=== PATIENT | female | born 1940 | race Caucasian/White ===

== ENCOUNTER → 2017-02-01 13:36 | Outpatient (CLI) | payer MEDICARE, OTHER ==
[2017-02-01 14:15] LABS: CREATININE - SERUM 0.8 mg/dL (0.6-1.3)
== END | disposition home or self-care (01) ==
LOC: D.LAB 13:36 → D.MRI 14:30
PROVIDERS: Psychiatry & Neurology Neurology
DX: G35 Multiple sclerosis (principal)

== ENCOUNTER 2017-02-07 08:20 | Outpatient (CLI) | payer MEDICARE, OTHER ==
[~2017-02-07] VITALS: Ht 162.6 cm; Wt 72.7 kg
[2017-02-07] MEDS ORDERED: SYNTHROID25 MCG (10:29)
[2017-02-07 10:35] VITALS: BP 133/71; Ht 162.6 cm; Wt 72.7 kg
--- NOTE | 2017-02-07 10:38 | NUR ---
1022- 22 GAUGE IV STARTED IN LEFT ARM X 1 STICK. FLUSHED EASILY WITHOUT ANY DIFFICULTIES. SECURED WITH TEGADERM. 1023-SOLUMEDROL INFUSION STARTED VIA MED PUMP AT 86CC/HR WITHOUT ANY PROBLEMS. SITE LOOKS PATENT WITHOUT ANY EDEMA NOTED. 1040-PT CONTINUES TO DO WELL. CALL LIGHT IN REACH WILL CONTINUE TO MONITOR
--- NOTE | 2017-02-07 11:44 | NUR ---
1140-ROOM CHECK, PT DOING WELL, AND DENIES ANY NEEDS OR CONCERNS AT THIS TIME
--- NOTE | 2017-02-07 13:47 | NUR ---
1325-INFUSION COMPLETED PLANNED. IV SALINE LOCKED AND WRAPPED WITH COBAN. 1350-PT ESCORTED OUT VIA WHEELCHAIR IN STABLE CONDITION
== END 2017-02-07 13:50 | disposition home or self-care (01) ==
LOC: D.OPS 08:20
DX: G35 Multiple sclerosis (principal)

== ENCOUNTER 2017-02-08 08:10 | Outpatient (CLI) | payer MEDICARE, OTHER ==
[~2017-02-08 08:10] MED LIST: SYNTHROID25 MCG
== END 2017-02-08 12:05 | disposition home or self-care (01) ==
LOC: D.OPS 08:10
DX: G35 Multiple sclerosis (principal)

== ENCOUNTER 2017-02-09 06:27 | Outpatient (CLI) | payer MEDICARE, OTHER ==
[~2017-02-09] VITALS: Ht 162.6 cm; Wt 72.7 kg
[2017-02-09 12:03] VITALS: BP 128/72; Ht 162.6 cm; Wt 72.7 kg
--- NOTE | 2017-02-09 12:14 | NUR ---
0920-SALINE LOCK TO LEFT ARM PATENT AND POSITIVE FOR BLOOD RETURN. FLUSHED. 1030-RESP WITH EASE, IV INFUSING PER PUMP, SITE WITHOUT REDNESS OR SWELLING. 1103-IV CONTINUES TO INFUSE PER PUMP. RESP WITH EASE. GLASS OF H2O PROVIDED.
== END 2017-02-09 12:55 | disposition home or self-care (01) ==
LOC: D.OPS 06:27
DX: G35 Multiple sclerosis (principal)

== ENCOUNTER 2017-02-10 08:34 | Outpatient (CLI) | payer MEDICARE, OTHER ==
--- NOTE | 2017-02-10 09:00 | NUR ---
PATIENT RECEIVED TO FLOOR. SITTING UP IN CHAIR ALERT. NO SIGNS OF DISTRESS NOTED. CALL LIGHT IN REACH.
--- NOTE | 2017-02-10 09:01 | NUR ---
ORDERED IV SOLUMEDROL INFUSION INITIATED. IV TO LEFT FOREARM PATENT. FLUSHES EASY. NO REDNESS OR INFLAMMATION NOTED. DENIES NEEDS. CALL LIGHT IN REACH.
[2017-02-10 09:17] VITALS: BP 150/60; Ht 162.6 cm
--- NOTE | 2017-02-10 12:30 | NUR ---
INFUSION COMPLETE. IV SALINE LOCKED. D/C TEACHING PROVIDED. STATES UNDERSTANDING. TRANSFERRED DOWNSTAIRS VIA WHEELCHAIR WITH STAFF
[2017-02-11] MEDS ORDERED: SYNTHROID75 MCG PO (19:44)
== END 2017-02-10 12:30 | disposition home or self-care (01) ==
LOC: D.OPS 08:34 → D.MS 08:35 → D.OPS 12:30
DX: G35 Multiple sclerosis (principal)

== ENCOUNTER 2017-02-11 14:14 | Outpatient (CLI) | payer MEDICARE, OTHER ==
[~2017-02-11] VITALS: Ht 162.6 cm; Wt 72.7 kg
[2017-02-11 14:31] VITALS: Ht 162.6 cm; Wt 72.7 kg
--- NOTE | 2017-02-11 14:41 | NUR ---
PT REC'D TO ROOM. AAOX4. PIV TO L FOREARM FREE OF REDDNESS AND SWELLING. BED LOW, CALL LIGHT IN REACH, DENIES NEEDS. CPOC.
--- NOTE | 2017-02-11 18:50 | NUR ---
PT FOUND IN FLOOR. WAS VERY LETHARGIC AND PALE. ASSISTED BACK TO BED. NO VISIBLE SIGN OF INJURY. PT DENIES HURTING ANYTHING. STATES, "I ATE SOME FOOD THAT DIDN'T AGREE WITH ME. I'VE FELT NAUSESOUS SINCE I GOT HERE. I WAS ON MY WAY BACK FROM THE BATHROOM." DENIES HEART HX. CURRENT VS. 147/86, PULSE 132, O2 97% ON RA, RESPERATIONS LABORED AT 20. EKG OBTAINED BY RASHEED. SHOWING A-FIB WITH OCCASIONAL PVC'S. TELEMETRY PLACED ON. READING 142 UNCONTROLLED A-FIB WITH PVC'S. DR. BONILLA CALLED AND HE STATED, "I DO NOT ADMIT PATIENTS. CALL MED-MOLD FILLER AND DRAINER OR CARDIOLOGY." WILL CALL CARDIOLOGY.
[2017-02-11] MEDS ORDERED: SYNTHROID75 MCG PO (19:44)
== END 2017-02-11 19:55 | disposition other institution (70) ==
LOC: D.OPS 14:14 → D.MS 14:14 → D.OPS 19:55
DX: G35 Multiple sclerosis (principal)

== ENCOUNTER 2017-02-11 19:35 | Inpatient (IN) | payer MEDICARE, OTHER ==
[~2017-02-11] VITALS: Ht 162.6 cm; Wt 163.7 kg
--- NOTE | ~2017-02-11 | EC ---
PATIENT:LEONARDO CHAO DATE OF SERVICE: 02/11/17 SEX: F MEDICAL RECORD: [id number] DATE OF : 38 LOCATION:D. D.211 AGE OF PATIENT: 77 ADMISSION DATE: 02/11/17 REFERRING PHYSICIAN: INTERPRETING PHYSICIAN: JOSÉ MANUEL CASTANO MD ECHOCARDIOGRAM REPORT ECHO CHARGES 4 ECHO COMPLETE CLINICAL DIAGNOSIS: A-FIB ECHOCARDIOGRAPHIC MEASUREMENTS (adult normal given) AC root (d.<3.7cm) 2.9 LV Septum d (<1.2 cm> 1.4 Valve Excursion 1.1 LV Septum (systole) 1.8 Left Atria (s.<4.0cm> 2.2 LVPW d(<1.2cm) 1.2 RV (d.<2.3cm) 2.1 LVPW (sytole) 1.6 LV diastole(<5.6CM) 2.9 MV E-F(>70mm/sec) LV systole 1.5 LVOT Diameter 1.5 MV exc.(>10mm) Est.ejection fraction (50-75%) Pericardial Effusion N DOPPLER: LVIT A E 93.0 LA RVSP 30.0 LVOT 135 AOP1/2T Asc. Ao 122 RVOT 6.0 RA PA 86.0 AV Gradient Peak 6.0 AV Mean 3.0 AV Area 2.1 MV Gradient Peak 3.7 MV Mean 1.5 MV Area COMMENTS: Nut Sheller: Jennifer CHICASOE Atlassian Administrator:Kitty Barnett TAPE# PACS DATE OF SERVICE: 02/14/2017 FINDINGS: 1. Left ventricular chamber size is within normal limits. Left ventricular systolic function is normal. Overall ejection fraction estimated at 60%. 2. Left atrium, right atrium, and right ventricle chamber sizes are within normal limits. 3. Valvular structures have normal structure and motion. 4. Doppler interrogation reveals mild to moderate tricuspid regurgitation, no other valvular insufficiency or stenosis. Pulmonary systolic pressure is ECHOCARDIOGRAM REPORT [id number] LEONARDO CHAO estimated at 30 mmHg. 5. No evidence of pericardial effusion or left ventricular thrombus. TRANSINT:[id number] Voice Confirmation ID: [id number] DOCUMENT ID: [id number] JOSÉ MANUEL CASTANO MD CC: [id number] DICTATION DATE: 02/14/171748 SEMI CONDUCTOR ASSEMBLER: 02/15/17 0427 ADM IN [facility] [address] [place] [address]
[2017-02-11] MEDS ORDERED: SYNTHROID75 MCG PO (19:44)
--- NOTE | 2017-02-11 20:07 | NUR ---
FAMILY ON FLOOR WAITING FOR PT TO BE BROUGHT OVER FROM MED SURG. REVIEWED PLAN OF CARE THAT WILL BE IMPLEMENTED.
--- NOTE | 2017-02-11 20:15 | NUR ---
RECEIVED FULL REPORT FROM DEBO ON PT/CHANGE IN STATUS AND ALL ORDERS THAT HAVE BEEN IMPLEMENTED A THIS TIME.
--- NOTE | 2017-02-11 22:00 | NUR ---
DR BONILLA ON UNIT SEEING PATIENT. ESTABLISHED PLAN OF CARE. NO NEW ORDERS NOTED. CPOC.
[2017-02-11 22:11] VITALS: BP 172/88
[2017-02-12] VITALS (7 sets, daily range): BP systolic 103–179; BP diastolic 49–88; Ht 162.6 cm; Wt 163.7 kg
--- NOTE | 2017-02-12 01:44 | NUR ---
2100 ADMINSTERED NEWLY ORDERED PO BY MEDS. PT WAS GIVEN BETAPACE. PT/FAMILY TEACHING ON PURPOSE TO WHOLE FAMILY. 2200 IV CARDIZEM/DILTIAZEM DRIP NOW UP AND INFUSING AT 10ML/HR. CURRENTLY UCAF 120'S PER TELEMETRY. FAMILY X 1 AT BEDSIDE. RESTART IVF AT KVO RATE AND WILL MONITOR.
--- NOTE | 2017-02-12 05:19 | NUR ---
0330 CAF 60'S, REDUCED RATE OF DILTIAZEM TO 5ML/HR AND WILL CONTINUE TO MONITOR. 0515 PT RESTING. NO DISTRESS. ALERT/ORIENTED. SON AT BEDSIDE. HAS MAINTAINED CAF 60'S. CONTINUE TO MONITOR.
[2017-02-12 06:19] LABS: BASOPHILS 0 % (0-2); EOSINOPHILS 0 % (0-7); HEMATOCRIT 46.5 % (36.0-48.0); HEMOGLOBIN 15.4 g/dL (12-16); IMMATURE GRANULOCYTES 0.5 % (0-5); LYMPHOCYTES 8.9 % (15-50); MCH 31.8 pg (26.0-34.0); MCHC 33.1 g/dL (31.0-37.0); MCV 95.9 fL (80.0-100.0); MEAN PLATELET VOLUME 11.1 fL (7.4-10.4); MONOCYTES 4.1 % (2-11); NEUTROPHILS 86.5 % (40-80); PLATELET COUNT 335 10x3/uL (130-400); RBC 4.85 10x6/uL (4.00-5.40); RDW 13.1 % (11.5-14.5); WBC 7.6 10x3/uL (4.8-10.8)
[2017-02-12 07:08] LABS: ALBUMIN 3.5 g/dL (3.4-5.0); ANION GAP 12.5 mmol/L (8-16); CALCIUM 8.7 mg/dL (8.5-10.1); CARBON DIOXIDE 29.7 mmol/L (21.0-32.0); CREATININE - SERUM 0.9 mg/dL (0.6-1.3); POTASSIUM - SERUM 3.2 mmol/L (3.5-5.1); T4 THYROXINE 10.2 ug/dL (4.7-13.3); THYROID STIMULATING HORMONE 0.21 uIU/mL (0.36-3.74)
--- NOTE | 2017-02-12 12:23 | NUR ---
FSBS 169
--- NOTE | 2017-02-12 19:00 | NUR ---
INITIAL ROUNDS MADE. PT SITTING UP IN BED WITH FAMILY IN ROOM. DENIES NEEDS OR C/O AT THIS TIME. CALL LIGHT IN REACH. WILL CONT TO MONITOR.
--- NOTE | 2017-02-12 21:30 | NUR ---
FSBS 258, NO INSULIN COVERAGE ORDERED. PT HAS JUST FINISHED EATING A STRAWBERRY ICE CREAM SLUSH FROM [employer].
--- NOTE | 2017-02-12 23:08 | NUR ---
VALIDATION TECHNICIAN AT BEDSIDE FOR VS. NEEDS ADDRESSED AT THIS TIME. CALL LIGHT IN REACH. WILL CONT TO MONITOR.
[2017-02-13] VITALS: BP 152/92
--- NOTE | 2017-02-13 03:22 | NUR ---
RESTING WELL WITH EYES CLOSED, CALL LIGHT IN REACH. WILL CONT TO MONITOR.
[2017-02-13 04:00] VITALS: BP 143/83
--- NOTE | 2017-02-13 07:30 | NUR ---
RESTING QUIETLY AAOX4 RESP UNLABORED DENIES ANY NEEDS OR DISCOFORT
[2017-02-13 08:03] VITALS: BP 148/79
[2017-02-13 08:20] LABS: FOLATE (FOLIC ACID) - SERUM 12.1 ng/mL (>3.0)
--- NOTE | 2017-02-13 11:50 | NUR ---
FSBS 144
[2017-02-13 11:58] VITALS: BP 152/72
[2017-02-13 16:08] VITALS: BP 112/47
--- NOTE | 2017-02-13 19:00 | NUR ---
INITIAL ROUNDS MADE. PT SITTING UP IN BED WITH FAMILY IN ROOM. DENIES NEEDS OR C/O AT THIS TIME. WILL CONT TO MONITOR.
[2017-02-13 21:48] VITALS: BP 141/77
--- NOTE | 2017-02-13 23:30 | NUR ---
SHOWROOM CONSULTANT AT BEDSIDE FOR VS. NEEDS ADDRESSED AT THIS TIME. CALL LIGHT IN REACH. WILL CONT TO MONITOR.
[2017-02-14 01:50] VITALS: BP 155/81
[2017-02-14 05:52] VITALS: BP 152/82
[2017-02-14 06:53] LABS: BASOPHILS 0.1 % (0-2); EOSINOPHILS 0 % (0-7); HEMATOCRIT 44.5 % (36.0-48.0); HEMOGLOBIN 14.8 g/dL (12-16); IMMATURE GRANULOCYTES 0.7 % (0-5); LYMPHOCYTES 8.3 % (15-50); MCH 31.8 pg (26.0-34.0); MCHC 33.3 g/dL (31.0-37.0); MCV 95.7 fL (80.0-100.0); MEAN PLATELET VOLUME 10.6 fL (7.4-10.4); MONOCYTES 7.3 % (2-11); NEUTROPHILS 83.6 % (40-80); PLATELET COUNT 348 10x3/uL (130-400); RBC 4.65 10x6/uL (4.00-5.40); RDW 13.1 % (11.5-14.5); WBC 15.1 10x3/uL (4.8-10.8)
[2017-02-14 07:04] LABS: CALCIUM 8.2 mg/dL (8.5-10.1); CARBON DIOXIDE 31.1 mmol/L (21.0-32.0); CREATININE - SERUM 0.9 mg/dL (0.6-1.3); POTASSIUM - SERUM 3.1 mmol/L (3.5-5.1)
[2017-02-14 08:23] VITALS: BP 166/93
[2017-02-14 11:42] VITALS: BP 129/72
--- NOTE | 2017-02-14 12:57 | NUR ---
Nutrition follow-up: Diet: Regular PO intake 75% of meals labs reviewed +BM Wt: 182# RDN following.
[2017-02-14 16:51] VITALS: BP 117/59
[2017-02-14 19:00] VITALS: BP 117/64
--- NOTE | 2017-02-14 19:37 | NUR ---
RESUMED CARE OF PT, LYING IN BED RESPIRATIONS EVEN AND UNLABORED ON ROOM AIR. 110 UCAF ON TELEMETRY. FAMILY AT BEDSIDE. CALL LIGHT IN REACH. WILL CONTINUE TO MONITOR. SEE NURSE ASSESSMENT.
[2017-02-15] VITALS: BP 139/75
--- NOTE | 2017-02-15 00:11 | NUR ---
DIRECTOR PERSONAL AT BEDSIDE TO OBTAIN VITALS, CALL LIGHT IN REACH. WILL CONTINUE TO WITH PLAN OF CARE.
[2017-02-15 04:00] VITALS: BP 171/93
[2017-02-15 08:00] VITALS: BP 148/68
[2017-02-15] MEDS ORDERED: XARELTO20 MG PO (10:41)
[2017-02-15] MEDS ORDERED: BETAPACE 80 MG80 MG PO (10:41)
[2017-02-15] MEDS ORDERED: PREDNISONE10 MG PO (11:11)
[2017-02-15 11:35] VITALS: BP 154/80
--- NOTE | 2017-02-15 12:29 | NUR ---
Patient Name: LEONARDO CHAO Admission Status: Elective Accout number: [id number] Admission Date: 02-11-2017 : 1940 Admission Diagnosis:ALTERED MENTAL STATUS, UNSPECIFIED Attending: GUEDLIA Current LOS: 4 Anticipated DC Date: 02-15-2017 Planned Disposition: Home with Home Health Primary Insurance: MEDICARE A & B PLANNED EXTERNAL PROVIDER: [facility] Discharge Planning Comments: * Is the patient Alert and Oriented? Yes 0 * How many steps to enter\exit or inside your home? RAMP 0 * PCP DR. HARSHAL GROVES 0 * Pharmacy [facility] 0 * Preadmission Environment Home Alone 0 * ADLs Independent 0 * Equipment Bedside Commode Other Rolling Walker Wheelchair 0 * Other Equipment WHEELCHAIR IS ELECTRIC] LIFT CHAIR NO MEDICAL EQUIPMENT PROVIDER PREFERENCE 0 * List name and contact numbers for known caregivers / representatives who currently or will assist patient after discharge: EDVIN CHAO, 0 * Community resources currently utilized None 0 * Please name any agencies selected above. NONE 0 * Additional services required to return to the preadmission environment? No 0 * Can the patient safely return to the preadmission environment? Yes 0 * Has this patient been hospitalized within the prior 30 days at any hospital? No 0 CM MET WITH PT IN ROOM TO DISCUSS DISCHARGE PLANNING AND NEEDS. PT REPORTS LIVING AT HOME INDEPENDENTLY AND ALONE. PT'S HOME HAS OTHER FAMILY MEMBERS WHO LIVE NEXT DOOR THAT COULD ASSIST IF NEEDED. PT REPORTS HAVING ALL NEEDED MEDICAL EQUIPMENT AT HOME WITH NO MEDICAL EQUIPMENT PROVIDER PREFERENCE. PT HAS NO OUTSIDE SERVICES ASSISTING IN THE HOME. CM DISCUSSED AVAILABILITY OF HOME HEALTH, REHAB SERVICES AND MEDICAL EQUIPMENT. PT WOULD LIKE HOME HEALTH TO EVALUATE HER FOR THERAPY AND REPORTS SHE IS FEELING WEAK AFTER BEING IN THE HOSPITAL. CHOICE REVIEWED, PT HAS NO PREFERENCE ON PROVIDER, CHOICE SIGNED. PT'S FAMILY HERE TODAY, PT REPORTS HER SON WILL PICK HER UP FOR DISCHARGE HOME. IMPORTANT MESSAGE FROM MEDICARE PROVIDED AND EXPLAINED. CM RECEIVED DISCHARGE ORDER AND HOME HEALTH ORDER. CM CALLED [facility], , PROVIDED REFERRAL INFORMATION TO TOM, REQUESTED SHE CONTACT PT'S PRIMARY DOCTOR FOR HOME HEALTH ORDERS. CM FAXED HOME HEALTH REFERRAL TO MIRANDA AT [phone]. PT NOTIFIED, NO FURTHER DISCHARGE NEEDS IDENTIFIED. Biomedical Equipment Support Specialist: Mehrdad Willard
--- NOTE | 2017-02-15 13:57 | NUR ---
TELEMETRY DCD. DC PLANS GIVEN. UNDERSTANDING VOICED. ESCORTED TO CAR BY W/C.
--- NOTE | 2017-02-16 08:43 | DS ---
PATIENT:LEONARDO CHAO :36 MEDICAL RECORD: [id number] DISCHARGE SUMMARY ADMISSION DATE: 02/11/17 DISCHARGE DATE: 02/15/17 DATE OF ADMISSION: 02/11/2017 DATE OF DISCHARGE: 02/15/2017 ADMITTING DIAGNOSES: Atrial fibrillation with rapid ventricular response and multiple sclerosis. HOSPITAL COURSE: This is a 77-year-old white female, patient of Dr. Riley Raman admitted with diagnoses as outlined above. Details are well-outlined in the history of the present illness, H&P. All events, lab procedures, diagnostic testing are well documented in the records. She was admitted. CONSULTANTS: Dr. Tenorio, her neurologist; Dr. Barnett, her account collector. She was started on a Cardizem drip. Dr. Tenorio put her on prednisone taper after completing Solu-Medrol. Echocardiogram obtained. She was put on telemetry monitoring. Echo showing EF of 60%, mild to moderate tricuspid regurgitation. No other valvular insufficiency or stenosis, RVSP 30. No effusion. No thrombus. She is in a controlled atrial fib started on anticoagulation and she is on oral sotalol per Dr. Barnett. Dr. Barnett and Dr. Tenorio both feels she is stable for dismissal home. She will follow up with her primary care Dr. Riley Raman in a week. Follow up with Dr. Tenorio her neurologist, follow up with Dr. Barnett in 2-3 weeks, if she is still in the AFib, he will convert her cardioverter. Her new scripts for Xarelto, sotalol and going home on a prednisone taper. Please refer to med rec. Her diagnoses AFib with RVR, muscular sclerosis. Greater than 30 minutes was spent on this discharge. TRANSINT:[id number] Voice Confirmation ID: [id number] DOCUMENT ID: [id number] Dictated By: MANE MCDUFFIE RN I have interviewed/examined the above patient and agree with these documented findings. SAMANTA MUELLER MD at 0843 CC: [id number] DICTATION DATE: 02/15/17 1432 SAP BASIS ADMINISTRATOR: 02/16/17 0556 DIS IN 02/15/17 [id number] [place] [address]
== END 2017-02-15 13:59 | disposition home health service (06) | DRG 310 ==
LOC: D.M2 19:35
PROVIDERS: Family Medicine Adult Medicine; ADMIT Family Medicine
DX: I48.91 Unspecified atrial fibrillation (principal); G35 Multiple sclerosis

== ENCOUNTER → 2019-05-23 12:36 | Outpatient (CLI) | payer MEDICARE, OTHER ==
[2017-02-12 14:54] VITALS: BMI 25.8
[~2019-05-23 12:36] MED LIST changes: +BETAPACE 80 MG80 MG PO; +PREDNISONE10 MG PO; +SYNTHROID75 MCG PO; +XARELTO20 MG PO
== END | disposition home or self-care (01) ==
LOC: D.HCCARDIO 05-19 10:00
PROVIDERS: ATTEND Internal Medicine Cardiovascular Disease
DX: I07.1 Rheumatic tricuspid insufficiency (principal)

== ENCOUNTER 2020-05-02 16:42 | Emergency (ER) | payer OTHER ==
[~2020-05-02] VITALS: Ht 162.6 cm; Wt 79.5 kg
[2020-05-02 16:51] VITALS: Ht 162.6 cm; Wt 79.5 kg
[2020-05-02] MEDS ORDERED: CELEXA10 MG PO (16:52)
[2020-05-02] MEDS ORDERED: ASPIRIN81 MG PO (16:52)
[2020-05-02 17:25] LABS: BASOPHILS 0.2 % (0-2); EOSINOPHILS 3.7 % (0-7); HEMATOCRIT 41.1 % (36.0-48.0); HEMOGLOBIN 13.1 g/dL (12-16); IMMATURE GRANULOCYTES 0.4 % (0-5); LYMPHOCYTES 19.9 % (15-50); MCH 31.3 pg (26.0-34.0); MCHC 31.9 g/dL (31.0-37.0); MCV 98.1 fL (80.0-100.0); MONOCYTES 6.1 % (2-11); NEUTROPHILS 69.7 % (40-80); PLATELET COUNT 317 10x3/uL (130-400); RBC 4.19 10x6/uL (4.00-5.40); RDW 13.1 % (11.5-14.5); WBC 8.5 10x3/uL (4.8-10.8)
[2020-05-02 17:37] LABS: CALC OSMOLALITY 277 mosm/kg (275-300); CALCIUM 8.9 mg/dL (8.5-10.1); CARBON DIOXIDE 30.4 mmol/L (21.0-32.0); CHLORIDE - SERUM 103 mmol/L (98-107); SODIUM 137 mmol/L (136-145); UREA NITROGEN 25 mg/dL (7-18); eGFR NON AFRICAN AMERICAN 56 mL/min (90-120)
[2020-05-02 17:40] LABS: GLUCOSE 106 mg/dL (74-106)
[2020-05-02 17:54] LABS: BILIRUBIN - TOTAL 0.43 mg/dL (0.2-1.3); CREATINE KINASE 83 UL (21-215); THYROID STIMULATING HORMONE 0.37 uIU/mL (0.36-3.74)
[2020-05-02 18:10] LABS: ALBUMIN 3.5 g/dL (3.4-5.0); ALKALINE PHOSPHATASE 82 U/L (30-120); ALT (SGPT) 17 U/L (10-68); MAGNESIUM - SERUM 2.4 mg/dL (1.8-2.4)
[2020-05-02 18:13] LABS: APTT 32.4 SECONDS (22.8-39.4); INR 1.01 (0.85-1.17); PROTIME 13.3 SECONDS (11.6-15.0)
[2020-05-02 18:14] LABS: TROPONIN-I < 0.017 ng/mL (0.000-0.060)
[2020-05-02 19:00] LABS: BILIRUBIN NEGATIVE (NEGATIVE); GLUCOSE NEGATIVE (NEGATIVE); KETONE NEGATIVE (NEGATIVE); NITRITE NEGATIVE (NEGATIVE); UROBILINOGEN NORMAL (NORMAL)
[2020-05-02 19:10] LABS: UDS - AMPHET NEGATIVE QUAL (NEGATIVE); UDS - BARB NEGATIVE QUAL (NEGATIVE); UDS - BENZO NEGATIVE QUAL (NEGATIVE); UDS - COCAINE NEGATIVE QUAL (NEGATIVE); UDS - OPIATE NEGATIVE QUAL (NEGATIVE); UDS - PCP NEGATIVE QUAL (NEGATIVE); UDS - THC NEGATIVE QUAL (NEGATIVE)
[2020-05-02] MEDS ORDERED: PHENERGAN25 M1 PO (21:35)
[2020-05-02 21:50] VITALS: BP 169/73
== END 2020-05-02 21:50 | disposition home or self-care (01) ==
LOC: D.ER 16:42
PROVIDERS: Family Medicine
DX: I10 Essential (primary) hypertension (principal); R41.0 Disorientation, unspecified; I48.91 Unspecified atrial fibrillation; G35 Multiple sclerosis